=== PATIENT | female | born 1970 | race Caucasian/White ===

== ENCOUNTER 2017-10-09 14:54 | Outpatient (CLI) | payer OTHER ==
--- NOTE | 2017-10-09 15:43 | MMO ---
BILATERAL DIGITAL SCREENING MAMMOGRAMS: Date: 10/09/17 This patient's mammogram was interpreted with the assistance of computer-aided detection. Baseline exam. FINDINGS: There are scattered fibroglandular densities with a few benign calcifications. No suspicious masses, calcifications, or architectural distortion are identified. IMPRESSION: BIRADS 2: Benign Finding(s) Return to annual mammographic screening. POS: [facility]
== END 2017-10-09 14:55 | disposition home or self-care (01) ==
LOC: SCSMAMMO 14:54
PROVIDERS: ATTEND Family Medicine
DX: Z12.31 Encounter for screening mammogram for malignant neoplasm of breast (principal)
CPT/HCPCS: 77067